=== PATIENT | male | born 1960 | race Caucasian/White ===

== ENCOUNTER 2019-05-07 13:51 | Inpatient (IN) | payer MEDICARE, MEDICAID ==
[~2019-05-07] VITALS: Ht 182.9 cm; Wt 152.9 kg
[2019-05-07 14:15] LABS: BASOPHILS % (AUTO) 0 % (0-10); EOSINOPHILS # (AUTO) 0.2 10^3/uL (0.0-0.3); EOSINOPHILS % (AUTO) 2 % (0-10); HEMATOCRIT 36 % (40-54); HEMOGLOBIN 11.7 G/DL (13.3-17.7); LYMPHOCYTES # (AUTO) 2.3 X 10^3 (1.0-4.0); LYMPHOCYTES % (AUTO) 29 % (12-44); MEAN CORPUSCULAR HEMOGLOBIN 29 PG (25-34); MEAN CORPUSCULAR HGB CONC 33 G/DL (32-36); MEAN CORPUSCULAR VOLUME 89 FL (80-99); MONOCYTES % (AUTO) 13 % (0-12); NEUTROPHILS # (AUTO) 4.5 X 10^3 (1.8-7.8); NEUTROPHILS % (AUTO) 56 % (42-75); PLATELET COUNT 273 10^3/uL (130-400); RED CELL DISTRIBUTION WIDTH 13.6 % (10.0-14.5)
[2019-05-07 14:25] LABS: INR 1.1 (0.8-1.4); PROTHROMBIN TIME PATIENT 14.3 SEC (12.2-14.7)
--- NOTE | 2019-05-07 14:28 | Diagnostic Imaging Report ---
PATIENT HISTORY: Chest pain. TECHNIQUE: Frontal view of the chest. COMPARISON: None. FINDINGS: Lung volumes are mildly low. There is mild cardiomegaly with central vascular congestion. There is airspace opacity in the left upper lung. No pneumothorax or pleural effusion is seen. IMPRESSION: 1. Airspace opacity in the left upper lung, may represent pneumonia or asymmetric edema. 2. Mild cardiomegaly with central vascular congestion. Dictated by: Dictated on workstation # [id number]
[2019-05-07 14:38] LABS: ALANINE AMINOTRANSFERASE 18 U/L (0-55); ALBUMIN 3.7 GM/DL (3.2-4.5); ALKALINE PHOSPHATASE 78 U/L (40-136); AMYLASE 20 U/L (25-125); BILIRUBIN,TOTAL 0.4 MG/DL (0.1-1.0); BUN/CREATININE RATIO 12; CALCIUM 9.1 MG/DL (8.5-10.1); CARBON DIOXIDE 22 MMOL/L (21-32); CHLORIDE 99 MMOL/L (98-107); CREATINE KINASE 53 U/L (30-200); CREATININE SERUM 0.82 MG/DL (0.60-1.30); GFR ESTIMATED > 60; GLUCOSE 96 MG/DL (70-105); LIPASE 17 U/L (8-78); MAGNESIUM 2.1 MG/DL (1.6-2.4); POTASSIUM 3.6 MMOL/L (3.6-5.0); SODIUM 134 MMOL/L (135-145); TOTAL PROTEIN 7.9 GM/DL (6.4-8.2)
[2019-05-07 14:47] LABS: CREATINE KINASE MB 0.6 NG/ML (<6.6)
[2019-05-07] MEDS ORDERED: ONDANSETRON 4 MG/2 ML (SDV) Z0FRAN ONE (15:00)
[2019-05-07] MEDS ORDERED: PANTOPRAZOLE 40 MG (PROTONIX) VIAL IV ONE (15:15)
[2019-05-07] MEDS ORDERED: ONDANSETRON 4 MG/2 ML (SDV) Z0FRAN IVP ONE (15:15)
[2019-05-07] MEDS ORDERED: NS 100 ML (IVPB) BAG IV ONE (15:30)
[2019-05-07] MEDS ORDERED: IOHEXOL 350 MG/ML 150 ML (OMNIPAQUE 350) VIAL IV ONE (15:30)
[2019-05-07] MEDS ORDERED: HOLD METFORMIN - RECEIVED CONTRAST 20 ML VIAL IV SCH (15:30)
--- NOTE | 2019-05-07 16:01 | ED Chest Pain ---
General Chief Complaint: Chest Pain Stated Complaint: CP Nursing Triage Note: PT ARRIVES VIA EMS FROM [facility] WITH C/O CHEST PAIN ONSET 0600 THIS AM. PT STATES HTN HISTORY. PT STATES HE HAD VOMITING AND DIARRHEA 1 WEEK AGO AND DIARRHEA TODAY. PT HAD AN EGD ON WEDNESDAY AND WAS STARTED ON BACTRIM ON WEDNESDAY FOR UTI. PRIOR TO ARRIVAL PT WAS GIVEN 4 ASA, 1 INCH OF NITRO PASTEA WITH NO RELIEF. EMS ADMINISTERED 100MCG OF FENTANYL. PT STATES 9/10 PAIN CURRENTLY. Nursing Sepsis Screen: No Definite Risk Source: patient (PT IS SOMEWHAT LIMITED HISTORIAN--APPEARS TO HAVE SOME MENTAL DEFICIENCY), EMS History of Present Illness Date Seen by Provider: May 07, 2019 Time Seen by Provider: 13:51 Initial Comments PT ARRIVES VIA EMS FROM [facility]---PT IS IN A HOME THROUGH [employer] AND HAS LIVE IN CAREGIVERS C/O CHEST PAIN SINCE WAKING AT 0600 THIS AM STATES PAIN IS IN CENTER OF CHEST AND OUT TO SIDES OF CHEST HAS BEEN HAVING THIS PAIN OFF AND ON FOR THE LAST FEW DAYS + SHORTNESS OF BREATH FOR THE LAST FEW DAYS NO SWEATS + NAUSEA AND VOMITING LAST WEEK. STATES HE IS A LITTLE NAUSEATED TODAY HAD DIARRHEA LAST WEEK, AND AGAIN TODAY NO KNOWN FEVER HAS HAD MILD COUGH PT HAD EGD ON WEDNESDAY, AND WAS STARTED ON BACTRIM ON WEDNESDAY FOR UTI EMS GAVE 4 BABY ASPIRIN, AND PLACED 1" OF NITROPASTE WITHOUT RELIEF. EMS THEN GAVE FENTANYL 100 MCG--PT STATES NO RELIEF. PT RATES PAIN 10/10 BP 124/71, PULSE IN 90'S, FOR EMS ACCUCHECK 87 FOR EMS PT DOES NOT HAVE A REPORTED HISTORY OF CARDIAC PROBLEMS CAREGIVER IS IN ROOM LATER, AND REPORTS THAT PT HAD ROUTINE APPOINTMENT WITH DR. LOAIZA ON 05/03/19, WAS FOUND TO HAVE A UTI AND WAS STARTED ON BACTRIM. NO OTHER TESTS WERE DONE, ACCORDING TO MORTGAGE PROTECTION SALES. PT WAS ALSO STARTED ON AMITRIPTYLINE . SHE STATES THAT HE WAS C/O CHEST PAIN AND SHORTNESS OF BREATH AT THAT TIME. HE COMPLAINED AGAIN OF CHEST PAIN TODAY, SO MORTGAGE PROTECTION SALES TOOK HIM TO WALK IN CLINIC AT [facility] TODAY, WHO SENT HIM HERE. NO FEVER, SWEATS OR CHILLS NO COUGH HAS C/O BEING TIRED PCP: DR. LOAIZA Allergies and Home Medications Allergies Coded Allergies: phenytoin (Verified Allergy, Unknown, 05/07/19) Patient Home Medication List Home Medication List Reviewed: Yes Review of Systems Review of Systems Constitutional: see HPI; No chills, No diaphoresis, No fever; malaise EENTM: Other (SORES ON LIPS FOR THE LAST 2 DAYS) Respiratory: See HPI; Denies Cough; Shortness of Air Cardiovascular: See HPI, Chest Pain Gastrointestinal: See HPI; Denies Abdominal Pain; Nausea, Other (HAS HISTORY OF BOWEL AND BLADDER INCONTINENCE) Musculoskeletal: no symptoms reported Skin: no symptoms reported Psychiatric/Neurological: No Symptoms Reported; Denies Headache Endocrine: No Symptoms Reported Past Kyzvdac-Uayehg-Jzgwuh Hx Patient Social History Alcohol Use: Denies Use Recreational Drug Use: No Smoking Status: Former Smoker (2 PPD, QUIT 2010, PER PT) Type Used: Cigarettes Recent Foreign Travel: No Contact w/Someone Who Travel: No Recent Infectious Disease Expo: No Recent Hopitalizations: No Physical Abuse: No Sexual Abuse: No Mistreated: No Fear: No Seasonal Allergies Seasonal Allergies: No Past Medical History Surgeries: Yes (RIGHT INGUINAL HERNIA REPAIR; EGD) Abdominal, Gallbladder Respiratory: No Cardiac: Yes High Cholesterol, Hypertension 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 Genitourinary: Yes (URINARY INCONTINENCE) Benign Prostatic Hyperpl, Prostate Problems Gastrointestinal: Yes (BOWEL INCONTINENCE) Gastroesophageal Reflux Musculoskeletal: Yes (JOINT PAIN ) Endocrine: Yes (OBESITY) Hypothyroidsim HEENT: No Cancer: No Psychosocial: Yes (MODERATE INTELLECTUAL DISABILITIES; IMPULSE DISORDER) Anxiety, Depression Integumentary: No Blood Disorders: No Physical Exam Vital Signs Vital Signs - First Documented 05/07/19 13:59 Temp 97.6 Pulse 90 Resp 10 B/P (MAP) 151/115 (127) Pulse Ox 95 O2 Delivery Room Air FiO2 95 Capillary Refill : Less Than 3 Seconds Height, Weight, BMI Height: 6'0" Weight: 341lbs. oz. 154.746159yn; BMI Method:Stated General Appearance: No Apparent Distress, Obese HEENT: PERRL/EOMI (GLASSES), Other (LIPS WITH MULTIPLE SCABBED SORES, CRACKED SKIN. ) Neck: Normal Inspection Respiratory: No Accessory Muscle Use, No Respiratory Distress, Decreased Breath Sounds (IN BASES), Rales (ON LEFT) Cardiovascular: Regular Rate, Rhythm, No Edema, No JVD, No Murmur, Normal Peripheral Pulses Gastrointestinal: Non Tender, Soft Extremity: Normal Capillary Refill, Normal Inspection, Normal Range of Motion, Non Tender, No Calf Tenderness, No Pedal Edema Neurologic/Psychiatric: Alert, Oriented x3, No Motor/Sensory Deficits, Normal Mood/Affect, district court bailiff II-XII Norm as Tested, Other (APPEARS TO BE MILD TO MODERATELY MENTALLY CHALLENGED) Skin: Normal Color, Warm/Dry Focused Exam Lactate Level 05/07/19 16:30: Lactic Acid Level 1.19 Lactic Acid Level Laboratory Tests Test 05/07/19 16:30 Lactic Acid Level 1.19 MMOL/L (0.50-2.00) Progress/Results/Core Measures Results/Orders Lab Results Laboratory Tests Test 05/07/19 13:58 05/07/19 16:30 Range/Units White Blood Count 8.0 4.3-11.0 10^3/uL Red Blood Count 3.97 L 4.35-5.85 10^6/uL Hemoglobin 11.7 L 13.3-17.7 G/DL Hematocrit 36 L 40-54 % Mean Corpuscular Volume 89 80-99 FL Mean Corpuscular Hemoglobin 29 25-34 PG Mean Corpuscular Hemoglobin Concent 33 32-36 G/DL Red Cell Distribution Width 13.6 10.0-14.5 % Platelet Count 273 130-400 10^3/uL Mean Platelet Volume 10.0 7.4-10.4 FL Neutrophils (%) (Auto) 56 42-75 % Lymphocytes (%) (Auto) 29 12-44 % Monocytes (%) (Auto) 13 H 0-12 % Eosinophils (%) (Auto) 2 0-10 % Basophils (%) (Auto) 0 0-10 % Neutrophils # (Auto) 4.5 1.8-7.8 X 10^3 Lymphocytes # (Auto) 2.3 1.0-4.0 X 10^3 Monocytes # (Auto) 1.0 0.0-1.0 X 10^3 Eosinophils # (Auto) 0.2 0.0-0.3 10^3/uL Basophils # (Auto) 0.0 0.0-0.1 10^3/uL Prothrombin Time 14.3 12.2-14.7 SEC INR Comment 1.1 0.8-1.4 Activated Partial Thromboplast Time 24 24-35 SEC Sodium Level 134 L 135-145 MMOL/L Potassium Level 3.6 3.6-5.0 MMOL/L Chloride Level 99 98-107 MMOL/L Carbon Dioxide Level 22 21-32 MMOL/L Anion Gap 13 5-14 MMOL/L Blood Urea Nitrogen 10 7-18 MG/DL Creatinine 0.82 0.60-1.30 MG/DL Estimat Glomerular Filtration Rate > 60 BUN/Creatinine Ratio 12 Glucose Level 96 70-105 MG/DL Calcium Level 9.1 8.5-10.1 MG/DL Corrected Calcium 9.3 8.5-10.1 MG/DL Magnesium Level 2.1 1.6-2.4 MG/DL Total Bilirubin 0.4 0.1-1.0 MG/DL Aspartate Amino Transf (AST/SGOT) 18 5-34 U/L Alanine Aminotransferase (ALT/SGPT) 18 0-55 U/L Alkaline Phosphatase 78 40-136 U/L Total Creatine Kinase 53 30-200 U/L Creatine Kinase MB 0.6 <6.6 NG/ML Myoglobin 29.7 10.0-92.0 NG/ML Troponin I < 0.028 <0.028 NG/ML B-Type Natriuretic Peptide 147.8 H <100.0 PG/ML Total Protein 7.9 6.4-8.2 GM/DL Albumin 3.7 3.2-4.5 GM/DL Amylase Level 20 L 25-125 U/L Lipase 17 8-78 U/L Procalcitonin 0.70 H <0.10 NG/ML Carbamazepine (Tegretol) Level 9.2 4.0-12.0 UG/ML Lactic Acid Level 1.19 0.50-2.00 MMOL/L Micro Results Microbiology 05/07/19 Influenza Types A,B Antigen (PATY) - Final, Complete My Orders Orders - DAVID MCINTYRE DO Cbc With Automated Diff (05/07/19 14:01) Magnesium (05/07/19 14:01) Chest 1 View, Ap/Pa Only (05/07/19 14:01) Ekg Tracing (05/07/19 14:01) Cardiac Profile 1 (05/07/19 14:01) Comprehensive Metabolic Panel (05/07/19 14:01) Myoglobin Serum (05/07/19 14:01) Protime With Inr (05/07/19 14:01) Partial Thromboplastin Time (05/07/19 14:01) O2 (05/07/19 14:01) Monitor-Rhythm Ecg Trace Only (05/07/19 14:01) Lipid Panel (05/08/19 06:00) Ed Iv/Invasive Line Start (05/07/19 14:01) Creatine Kinase (05/07/19 14:01) Creatine Kinase Mb (05/07/19 14:01) Lipase (05/07/19 14:01) Amylase (05/07/19 14:01) BNP (05/07/19 14:01) Carbamazepine (Tegretol) (05/07/19 14:01) Ct Angio Chest W (05/07/19 15:03) Ondansetron Injection (Zofran Injectio (05/07/19 15:15) Pantoprazole Injection (Protonix Injecti (05/07/19 15:15) Ondansetron Injection (Zofran Injectio (05/07/19 15:00) Iohexol Injection (Omnipaque 350 Mg/Ml 1 (05/07/19 15:30) Received Contrast (Hold Metformin- Contr (05/07/19 15:30) Ns (Ivpb) (Sodium Chloride 0.9% Ivpb Bag (05/07/19 15:30) Methylprednisolone Sod Succ (Solu-Medrol (05/07/19 16:30) Lactic Acid Analyzer (05/07/19 16:20) Blood Culture (05/07/19 16:20) Influenza A And B Antigens (05/07/19 16:20) Ceftriaxone For Iv Use (Rocephin For I (05/07/19 16:30) Azithromycin Injection (Zithromax Inject (05/07/19 16:30) Procalcitonin (Pct) (05/07/19 16:37) Ed Iv/Invasive Line Start (05/07/19 16:43) Ns Iv 1000 Ml (Sodium Chloride 0.9%) (05/07/19 16:43) Medications Given in ED Current Medications Medications Dose Ordered Sig/Ankush Route Start Time Stop Time Status Last Admin Dose Admin Azithromycin 500 mg/Sodium Chloride 250 ml @ 250 mls/hr ONCE ONCE IV 05/07/19 16:30 05/07/19 17:29 DC 05/07/19 17:00 250 MLS/HR Ceftriaxone Sodium 1000 mg/ Sterile Water 10 ml @ 200 mls/hr ONCE ONCE IV 05/07/19 16:30 05/07/19 16:32 DC 05/07/19 17:00 200 MLS/HR Methylprednisolone Sodium Succinate 125 mg ONCE ONCE IVP 05/07/19 16:30 05/07/19 16:31 DC 05/07/19 16:48 125 MG Ondansetron HCl 8 mg ONCE ONCE IVP 05/07/19 15:15 05/07/19 15:16 DC 05/07/19 15:11 8 MG Pantoprazole 40 mg ONCE ONCE IV 05/07/19 15:15 05/07/19 15:16 DC 05/07/19 15:33 40 MG Vital Signs/I&O 05/07/19 05/07/19 13:59 13:59 Temp 97.6 Pulse 90 Resp 10 B/P (MAP) 151/115 (127) Pulse Ox 95 95 O2 Delivery Room Air Room Air FiO2 95 Blood Pressure Mean: 127 Progress Progress Note : Progress Note O2 SATS 92-93% ON ROOM AIR--UP TO 98% ON 2L/NC Initial ECG Impression Date: May 07, 2019 Initial ECG Impression Time: 13:59 Initial ECG Rate: 84 Initial ECG Rhythm: Normal Sinus (RBBB) Initial ECG Comparisson: No Previous ECG Available Diagnostic Imaging Comments CXR--MILD CARDIOMEGALY, GLORIA INFILTRATES-LIKELY PNEUMONIA, PER RADIOLOGIST REPORT CT CHEST ANGIOGRAM--NO P.E.; BORDERLINE CARDIOMEGALY; ALVEOLAR/INTERSTITIAL INFILTRATES INVOLVING GLORIA AND LLL LIKELY DUE TO PNEUMONIA, BILATERAL RENAL ANGIOMYOLIPOMAS--PER RADIOLOGIST REPORT AT 1619 Reviewed: Reviewed by Me Departure Communication (Admissions) 1635--SPOKE WITH DR. MOLINA, HOSPITALIST, ACCEPTS PT FOR ADMIT Impression Primary Impression: LEFT SIDED PNEUMONIA Disposition: ADMITTED INPATIENT Condition: Stable Departure-Patient Inst. Referrals: SHYAM LOAIZA MD (PCP/Family) Primary Care Physician DAVID MCINTYRE DO May 07, 2019 16:01
--- NOTE | 2019-05-07 16:14 | Diagnostic Imaging Report ---
PROCEDURE: CT angiography of the chest with contrast. TECHNIQUE: Multiple contiguous axial images were obtained through the chest after uneventful bolus administration of intravenous contrast. 3D reconstructed CTA MIP acquisitions were also performed. Auto Exposure Controls were utilized during the CT exam to meet ALARA standards for radiation dose reduction. INDICATION: Shortness of breath, chest pain. FINDINGS: There are no prior CTA chest examinations available for comparison. The plain film examination of the chest performed earlier today at 12:55 PM noted mild cardiomegaly, pulmonary congestion and raised the question of pneumonia in the left upper lung. On this exam, the heart is borderline enlarged. There are no coronary artery calcifications noted. There is no defect within the pulmonary arteries to indication pulmonary embolus. The aorta is not abnormally dilated and there is no sign of dissection. There are patchy alveolar/interstitial infiltrates involving the left upper lobe and to a somewhat greater extent the left lower lobe. This does suggest pneumonia/atelectasis. The right lung is relatively clear. There is no sign of a pleural effusion. There is no mediastinal or hilar adenopathy. The thyroid gland is generally unremarkable. The sections through the upper abdomen failed to show any sign of an acute abnormality. The liver is of lower density than usually seen and this does suggest fatty metamorphosis. Also, there is a 2.6 cm fairly well-circumscribed area of low density within the right kidney and a similar-appearing 1.9 cm area of low-density in the left kidney. These findings have fat density Hounsfield units and may represent angiomyolipomas. If further study is desired, then CT of the abdomen and pelvis would be recommend. The bone windows show no sign of a fracture or of a destructive lesion. There are mild compression deformities of several of the mid and lower thoracic ribs. I suspect these are long-standing in nature. IMPRESSION: 1. There is borderline cardiomegaly and the alveolar/interstitial infiltrates involving the left upper lobe and left lower lobe are most likely due to pneumonia/atelectasis. A followup exam would be recommended for further study. 2. There is no acute cardiopulmonary abnormality noted otherwise. 3. 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 Recommendations as above. Dictated by: Dictated on workstation # [id number]
[2019-05-07] MEDS ORDERED: methylPREDNISolone 125 MG (Solu-MEDROL) VIAL IVP ONE (16:30)
[2019-05-07] MEDS ORDERED: cefTRIAXone FOR IV USE 1,000 MG in WATER (STERILE) FOR INJECTION 10 ML IV ONE (16:30)
[2019-05-07] MEDS ORDERED: AZITHROMYCIN INJECTION 500 MG in NS (IVPB) 250 ML IV ONE ×2 (16:30→20:00)
[2019-05-07] MEDS ORDERED: NS IV 1000 ML 1,000 ML IV ONE (16:43)
--- NOTE | 2019-05-07 17:09 | NUR ---
report to tatiana shell for continued care
--- NOTE | 2019-05-07 18:00 | NUR ---
BERTIN PORRAS admitted to room 432-1, with an admitting diagnosis of PNEUMONIA , on 05/07/19 from EMERGENCY DEPARTMENT via W/C, accompanied by ED STAFF. BERTIN PORRAS introduced to surroundings, call light, bed controls, phone, TV, temperature control, lights, meal times, smoking policy, visitor policy, side rail policy, bathrooms and showers. Patient Rights given to patient in the handbook. BERTIN PORRAS verbalizes understanding that [facility] is not responsible for the loss or damage to any personal effects or valuables that are kept in the patients posession during their hospitalization. BERTIN PORRAS verbalizes understanding of Interdisciplinary Patient Education. Patient and/or family were informed about the Rapid Response Team and its purpose.
[2019-05-07] MEDS ORDERED: ACETAMINOPHEN 500 MG TAB (TYLENOL) PO PRN (18:15)
[2019-05-07 18:19] VITALS: BP 124/77
--- NOTE | 2019-05-07 18:23 | NUR ---
PATIENT ZITHROMAX AND ROCEPHIN NON-ADMINISTERED THESE MEDICATIONS WERE GIVEN IN THE EMERGENCY ROOM PRIOR TO 4TH FLOOR ADMISSION. THIS RN WILL CONT TO MONITOR THIS PATIENT THROUGHOUT THE REMAINDER OF THIS SHIFT.
--- NOTE | 2019-05-07 18:26 | NUR ---
PATIENT SHOP AND ALTERATION TAILOR BROUGHT ACCURATE MEDICATION LIST AND NEW MEDICATION ( AMITRIPTYLIN) THAT WAS RETURNED AFTER REVIEWING THE PATIENT'S MEDICATION LIST. MEDICATION RECONCILIATION TECH WILL REVIEW THE REMAINDER OF THIS LIST IN THE A.M.
[2019-05-07] MEDS ORDERED: AMIT25TA9 PO (18:29)
[2019-05-07] MEDS: NS IV 1000 ML 1,000 ML IV SCH (18:45)
[2019-05-07 19:55] VITALS: BP 124/77
[2019-05-07] MEDS ORDERED: RT-ALBUTEROL SULF 2.5 MG/3 ML PRE-MIX VIAL INH PRN (20:15)
[2019-05-07 20:19] VITALS: BP 101/56
[2019-05-07] MEDS ORDERED: cefTRIAXone FOR IV USE 1,000 MG in WATER (STERILE) FOR INJECTION 10 ML IV SCH (21:00)
[2019-05-08 00:55] VITALS: BP 130/67
[2019-05-08] MEDS: methylPREDNISolone 125 MG (Solu-MEDROL) VIAL IVP SCH ×3 (01:07→12:01)
[2019-05-08 04:00] VITALS: BP 124/68
[2019-05-08] MEDS: NS IV 1000 ML 1,000 ML IV SCH ×2 (05:27→14:16)
[2019-05-08 05:52] LABS: BASOPHILS % (AUTO) 0 % (0-10); EOSINOPHILS % (AUTO) 0 % (0-10); HEMATOCRIT 38 % (40-54); HEMOGLOBIN 12.3 G/DL (13.3-17.7); LYMPHOCYTES # (AUTO) 1.2 X 10^3 (1.0-4.0); LYMPHOCYTES % (AUTO) 20 % (12-44); MEAN CORPUSCULAR HEMOGLOBIN 29 PG (25-34); MEAN CORPUSCULAR HGB CONC 33 G/DL (32-36); MEAN CORPUSCULAR VOLUME 90 FL (80-99); MEAN PLATELET VOLUME 10.1 FL (7.4-10.4); MONOCYTES # (AUTO) 0.2 X 10^3 (0.0-1.0); MONOCYTES % (AUTO) 3 % (0-12); NEUTROPHILS # (AUTO) 4.9 X 10^3 (1.8-7.8); NEUTROPHILS % (AUTO) 77 % (42-75); PLATELET COUNT 266 10^3/uL (130-400); RED CELL DISTRIBUTION WIDTH 13.4 % (10.0-14.5); WHITE BLOOD COUNT 6.3 10^3/uL (4.3-11.0)
[2019-05-08 06:09] LABS: BUN/CREATININE RATIO 13; CARBON DIOXIDE 25 MMOL/L (21-32); CHLORIDE 101 MMOL/L (98-107); CREATININE SERUM 0.83 MG/DL (0.60-1.30); POTASSIUM 4.1 MMOL/L (3.6-5.0); SODIUM 137 MMOL/L (135-145)
[2019-05-08 06:10] LABS: ALANINE AMINOTRANSFERASE 19 U/L (0-55); ALBUMIN 3.8 GM/DL (3.2-4.5); ALKALINE PHOSPHATASE 80 U/L (40-136); BILIRUBIN,TOTAL 0.2 MG/DL (0.1-1.0); CALCIUM 9.5 MG/DL (8.5-10.1); CHOLESTEROL 214 MG/DL (< 200); GFR ESTIMATED > 60; GLUCOSE 131 MG/DL (70-105); HDL CHOLESTEROL 43 MG/DL (40-60); TOTAL PROTEIN 8.3 GM/DL (6.4-8.2); TRIGLYCERIDES 111 MG/DL (<150); VLDL CHOLESTEROL 22 MG/DL (5-40)
[2019-05-08 08:00] VITALS: BP 132/68
[2019-05-08] MEDS ORDERED: AZITHROMYCIN 250 MG TAB (ZITHROMAX) PO SCH (09:00)
--- NOTE | 2019-05-08 09:22 | Diagnostic Imaging Report ---
INDICATION: Pneumonia, followup. TECHNIQUE: Two view chest 9:13 AM CORRELATION STUDY: 05/07/2019 FINDINGS: Heart size remains enlarged with borderline vasculature. More focal area of airspace disease of the left upper lobe does persist, slightly improved. No significant effusion. Mild degenerative changes of the thoracic spine with slight anterior wedging mid thoracic vertebral bodies. IMPRESSION: 1. Cardiac enlargement and borderline vasculature. 2. More superimposed airspace opacity left upper lobe persists but does appear to be slightly improved. Dictated by: Dictated on workstation # [id number]
[2019-05-08] MEDS ORDERED: CITA20TA9 PO (10:22)
[2019-05-08] MEDS ORDERED: PANT40TA3 PO (10:22)
[2019-05-08] MEDS ORDERED: ACET-2267 PO (10:22)
[2019-05-08] MEDS ORDERED: MELO15TA39 PO (10:22)
[2019-05-08] MEDS ORDERED: MULT1TAB69 PO (10:22)
[2019-05-08] MEDS ORDERED: BUSP15TA60 PO (10:22)
[2019-05-08] MEDS ORDERED: BENA20TA7 PO (10:22)
[2019-05-08] MEDS ORDERED: DICY20TA10 PO (10:22)
[2019-05-08] MEDS ORDERED: TAMS0.4C98 PO (10:22)
[2019-05-08] MEDS ORDERED: HYDR25TA4 PO (10:22)
[2019-05-08] MEDS ORDERED: LORA10TA7 PO (10:22)
[2019-05-08] MEDS ORDERED: AMIT25TA9 PO (10:22)
[2019-05-08] MEDS ORDERED: RT-ALBUINH IH (10:22)
[2019-05-08] MEDS ORDERED: IBUP-30 PO (10:22)
[2019-05-08] MEDS ORDERED: LEVO175T5 PO (10:22)
[2019-05-08] MEDS ORDERED: OMG1KC PO (10:22)
[2019-05-08] MEDS ORDERED: CHOL378P PO (10:22)
[2019-05-08] MEDS ORDERED: SIMV20TA3 PO (10:22)
[2019-05-08] MEDS ORDERED: AMLO5TAB9 PO (10:22)
[2019-05-08] MEDS ORDERED: BUPR150T7 PO (10:22)
[2019-05-08] MEDS ORDERED: CARB300C9 PO ×2 (10:22)
[2019-05-08] MEDS ORDERED: SULF-222 PO (10:22)
--- NOTE | 2019-05-08 10:29 | NUR ---
SPOKE WITH THE PATIENT ABOUT HIS MEDICATIONS. WE WENT OVER THE EXT MED HX AND HE VERIFIED HOW HE TAKES THEM. AFTER TALKING WITH HIM I FOUND A LIST FROM [facility] ON THE CHART AND COMPARED IT WITH WHAT WE DISCUSSED. IN ADDITION TO THE LIST FROM [facility] HE STATES HE TAKES TYLENOL AND IBU NEEDED WELL A MTV AND FISH OIL OTC. HE ALSO STATES HE HAS AN INHALER HE USES ONLY NEEDED. I ADDED THESE TO THE MED REC.
[2019-05-08] MEDS ORDERED: AZIT250T12 PO (10:33)
[2019-05-08] MEDS ORDERED: CEPH-507 PO (10:33)
--- NOTE | 2019-05-08 10:34 | NUR ---
CM/SS spoke with the patient's worker at [facility] in [place] to let them know of the discharge for this day. They will provide transportation this day.
--- NOTE | 2019-05-08 10:37 | Discharge Inst-Simple/Standard ---
Discharge Inst-Standard Patient Instructions/Follow Up Plan of Care/Instructions/FU: Please continue to take your medications as written. Please follow up with your primary care doctor in the next week. Activity as Tolerated: Yes Discharge Diet: No Restrictions Return to The Hospital For: Chest pain, shortness of breath, fever, worsening cough, if you feel you are getting worse. JENNIFER GROVE MD May 08, 2019 10:36 am
--- NOTE | 2019-05-08 10:38 | Short Stay Summary-Hospitalist ---
History of Present Illness HPI/Chief Complaint Pt is a 58yoCM admitted for CAP. He is a somewhat poor historian but states that he's here due to the fact that's he's had a "hard time breathing." He denies any history of this previously or any sick contacts. He denies any fever or chills. He states this has been going on for 2 days. He denies any sputum. He was found to have a pneumonia on CXR and admitted for CAP. Source: patient Exam Limitations: no limitations Date Seen 05/08/19 Time Seen by a Provider: 10:30 Attending Physician Annabel Zepeda MD PCP Lidia Beckman MD Referring Physician Date of Admission May 07, 2019 at 5:02 pm Home Medications & Allergies Home Medications Reviewed patient Home Medication Reconciliation performed by pharmacy medication reconciliations biometrics technician and/or nursing. Patients Allergies have been reviewed. Allergies Allergies Coded Allergies phenytoin (Verified Allergy, Unknown, 05/07/19) Past Yttnleb-Yakhdn-Gdturj Hx Past Med/Social Hx: Reviewed Nursing Past Med/Soc Hx Patient Social History Alcohol Use: Denies Use Recreational Drug Use: No Smoking Status: Former Smoker (2 PPD, QUIT 2010, PER PT) Type Used: Cigarettes Recent Foreign Travel: No Contact w/other who traveled: No Recent Hopitalizations: No Recent Infectious Disease Expo: No Seasonal Allergies Seasonal Allergies: No Past Medical History Surgeries: Abdominal, Gallbladder Cardiac: High Cholesterol, Hypertension Neurological: Developmental Disorder Genitourinary: Benign Prostatic Hyperpl, Prostate Problems Gastrointestinal: Gastroesophageal Reflux Endocrine: Hypothyroidsim Psychosocial: Anxiety, Depression History of Blood Disorders: No Family History Reviewed Nursing Family Hx Cardiovascular disease G8 SISTER Coronary thrombosis G8 SISTER Review of Systems Constitutional: No chills, No fever EENTM: no symptoms reported Respiratory: cough, short of breath Cardiovascular: No chest pain, No edema Gastrointestinal: no symptoms reported Genitourinary: no symptoms reported Musculoskeletal: no symptoms reported Skin: no symptoms reported Psychiatric/Neurological: No Symptoms Reported Physical Exam Physical Exam Vital Signs Vital Signs - First Documented 05/07/19 13:59 Temp 97.6 Pulse 90 Resp 10 B/P (MAP) 151/115 (127) Pulse Ox 95 O2 Delivery Room Air FiO2 95 Capillary Refill : Less Than 3 Seconds Height, Weight, BMI Height: 6'0.00" Weight: 337lbs. 0.7oz. 152.807827em; 46.0 BMI Method:Stated General Appearance: No Apparent Distress, Obese HEENT: PERRL/EOMI (GLASSES), Other (LIPS WITH MULTIPLE SCABBED SORES, CRACKED SKIN. ) Neck: Normal Inspection Respiratory: Lungs Clear, No Accessory Muscle Use, No Respiratory Distress Cardiovascular: Regular Rate, Rhythm, No JVD, No Murmur, Normal Peripheral Pulses Gastrointestinal: Normal Bowel Sounds, Non Tender, Soft Extremity: Normal Capillary Refill, Normal Inspection, Non Tender, No Calf Tenderness, No Pedal Edema Neurologic/Psychiatric: Alert, Oriented x3, Normal Mood/Affect, Other (mild intellectual delay) Skin: Normal Color, Warm/Dry Results Results/Procedures Labs Laboratory Tests 05/07/19 13:58 05/08/19 05:30 Patient resulted labs reviewed. Imaging: Reviewed Imaging Report Short Stay Diagnosis Discharge Diagnosis-Short Stay Admission Diagnosis CAP Final Discharge Diagnosis CAP Conclusion Plan CAP Much improved, requesting discharge home Continue antibiotic course at home On room air Discuss with social work who will arrange transport back to facility Clinical Quality Measures AMI/AHF: ASA po Prior to arrival: Yes DVT/VTE Risk/Contraindication: Risk Factor Score Per Nursin RFS Level Per Nursing on Admit: 4+=Very High JENNIFER GROVE MD May 08, 2019 10:38 am
[2019-05-08] MEDS ORDERED: cefTRIAXone 1,000 MG IV (ROCEPHIN) VIAL ONE (11:52)
--- NOTE | 2019-05-08 12:02 | NUR ---
SCHEDULED DOSE OF ROCEPHIN FOR 1600 GIV[address] AT [address] GROVE VERBAL ORDER.
[2019-05-08] MEDS ORDERED: cefTRIAXone FOR IV USE 1,000 MG in WATER (STERILE) FOR INJECTION 10 ML IV SCH (16:00)
== END 2019-05-08 15:00 | disposition home or self-care (01) | DRG 194 ==
LOC: ER 13:55 → 4TH 17:02
PROVIDERS: ADMIT Internal Medicine; ATTEND Internal Medicine
DX: J18.1 Lobar pneumonia, unspecified organism (principal); I10 Essential (primary) hypertension; N39.0 Urinary tract infection, site not specified; R15.9 Full incontinence of feces; F71 Moderate intellectual disabilities; N40.1 Benign prostatic hyperplasia with lower urinary tract symptoms; R32 Unspecified urinary incontinence; E66.9 Obesity, unspecified; Z68.42 Body mass index [BMI] 45.0-49.9, adult; K21.9 Gastro-esophageal reflux disease without esophagitis; E03.9 Hypothyroidism, unspecified; F63.9 Impulse disorder, unspecified; F41.9 Anxiety disorder, unspecified; F32.9 Major depressive disorder, single episode, unspecified; Z87.891 Personal history of nicotine dependence
CPT/HCPCS: 36415; 71045; 71046; 71275; 80053; 80061; 80156; 82150; 82550; 82553; 83605; 83690; 83735; 83874; 83880; 84145; 84484; 85025; 85610; 85730; 87040; 87804; 93005; 93041

== ENCOUNTER → 2019-05-19 | Outpatient (CLI) | payer MEDICARE, MEDICAID ==
[~2019-05-19] MED LIST: ACET-2267 PO; AMIT25TA9 PO; AMLO5TAB9 PO; AZIT250T12 PO; BENA20TA7 PO; BUPR150T7 PO; BUSP15TA60 PO; CARB300C9 PO; CEPH-507 PO; CHOL378P PO; CITA20TA9 PO; DICY20TA10 PO; HYDR25TA4 PO; IBUP-30 PO; LEVO175T5 PO; LORA10TA7 PO; MELO15TA39 PO; MULT1TAB69 PO; OMG1KC PO; PANT40TA3 PO; RT-ALBUINH IH; SIMV20TA3 PO; SULF-222 PO; TAMS0.4C98 PO
--- NOTE | 2019-05-19 16:47 | Diagnostic Imaging Report ---
INDICATION: Pulmonary edema. EXAMINATION: Bilateral renal sonography was performed in the routine fashion, including renal artery Doppler. FINDINGS: The right kidney measures 11.0 x 4.5 x 5.6 cm. The left kidney measures 11.6 x 6.0 x 5.2 cm. On the right side, there is a hyperechoic lesion in the superior pole, measuring 3.1 x 2.3 x 2.2 cm. This may represent angiomyolipoma. On the left side, there is a hyperechoic lesion in the superior pole that measures 2.9 x 2.5 x 2.2 cm, also suspicious for an angiomyolipoma. In correlation with the recent CT study of 05/07/2019, these lesions both show fatty density and therefore would be compatible with angiomyolipomas. There is no hydronephrosis. Urinary bladder appears unremarkable with bilateral ureteral jets. On the left side, renal artery waveforms are normal throughout with normal low resistance pattern and no significant velocity elevation. On the right side, the mid and distal renal artery shows normal waveforms of the proximal portion but the renal artery could not be visualized. IMPRESSION: Normal size kidneys, bilaterally, with no hydronephrosis. There are hyperechoic lesions on both sides which in correlation with recent CT study are compatible with angiomyolipomas. Renal artery Doppler does not suggest renal artery stenosis, although the proximal portion of the right renal artery is not well-seen. Dictated by: Dictated on workstation # [id number]
== END ==
LOC: RAD 07:14
PROVIDERS: ATTEND Family Medicine
DX: N28.9 Disorder of kidney and ureter, unspecified (principal)
CPT/HCPCS: 76770; 93975

== ENCOUNTER → 2019-06-08 | Outpatient (CLI) | payer MEDICARE, MEDICAID ==
[~2019-06-08] VITALS: Ht 183 cm; Wt 157.0 kg
[~2019-06-08] MED LIST changes: +CATHETER FLUSH 10 ML SYR IV PRN; +REGADENOSON 0.4 MG/5 ML SYR (LEXISCAN) IV ONE
[2019-06-08 09:14] VITALS: BP 147/108
[2019-06-08 09:15] VITALS: BP 128/90
--- NOTE | 2019-06-12 15:16 | Cardiology Stress Test Report ---
Stress Test Report Type of NM Stress Test: Test Type: LEXISCAN 0.4MG/5ML Date of Procedure/Referring: Date of Procedure: Jun 08, 2019 PCP Yanique Giron MD Admitting Physician Lidia Beckman MD Indications: Chest pain Baseline Heart Rate: 76 Baseline Blood Pressure: Blood Pressure Systolic: 128 Blood Pressure Diastolic: 90 Baseline EKG: Baseline EKG: sinus rhythm Summary & Conclusion: Summary: The patient was brought to the stress lab after informed consent was taken. S tress test was performed according to the Lexiscan protocol. 0.4 mg of IV Lexiscan was given. Low-grade exercise was performed. Baseline EKG showed sinus rhythm at 76 BPM. Initial blood pressure was 136/87 mmHg. Maximum heart rate was 90 bpm and blood pressure 145/87 mmHg. Patient did not have any chest pain, arrhythmias or ST segment changes during the stress test. 10.5 mCi of Myoview were given for rest imaging and 33 mCi of Myoview given for stress imaging. Transient ischemic dilatation score 1.07, EF 34 percent. Global hypokinesis. Large fixed anterior septal, apical defect with no reversibility. Conclusion: Pharmacological stress test was negative for ischemia. Moderate to severe LV systolic dysfunction with global hypokinesis. Possible large anterior infarct. Viability study is recommended. Yanique GIRON MD Jun 12, 2019 15:16
== END ==
LOC: CARD 07:40
PROVIDERS: ATTEND Internal Medicine Interventional Cardiology
DX: I11.9 Hypertensive heart disease without heart failure (principal); E66.01 Morbid (severe) obesity due to excess calories; E78.01 Familial hypercholesterolemia; Z87.891 Personal history of nicotine dependence
CPT/HCPCS: 78452; 93017; 93306

== ENCOUNTER → 2019-06-19 | Outpatient (CLI) | payer MEDICARE, MEDICAID ==
[~2019-06-19] MED LIST changes: -CATHETER FLUSH 10 ML SYR IV PRN; -REGADENOSON 0.4 MG/5 ML SYR (LEXISCAN) IV ONE
== END ==
LOC: CARD 10:16
PROVIDERS: ATTEND Internal Medicine Interventional Cardiology
DX: I51.7 Cardiomegaly (principal); I51.3 Intracardiac thrombosis, not elsewhere classified

== ENCOUNTER 2019-07-06 10:58 | Day surgery (SDC) | payer MEDICARE, MEDICAID ==
[2019-07-06] VITALS (10 sets, daily range): BP systolic 114–136; BP diastolic 60–80
[~2019-07-06] VITALS: Ht 182.9 cm; Wt 158.0 kg
[2019-07-06] MEDS ORDERED: NS IV 1000 ML 1,000 ML IV SCH (11:11)
[2019-07-06] MEDS ORDERED: HEParin (CATH LAB) 2,000 ML IV ONE (11:16)
[2019-07-06] MEDS ORDERED: LIDOCAINE 1% INJ 20 ML 20 ML VIAL ONE (11:16)
[2019-07-06] MEDS ORDERED: NS IV 1000 ML 1,000 ML ONE (11:16)
[2019-07-06 11:42] LABS: HEMOGLOBIN 12.7 G/DL (13.3-17.7); RED CELL DISTRIBUTION WIDTH 13.9 % (10.0-14.5); WHITE BLOOD COUNT 8.8 10^3/uL (4.3-11.0)
[2019-07-06 11:53] LABS: PROTHROMBIN TIME PATIENT 13.3 SEC (12.2-14.7)
[2019-07-06 11:54] LABS: ALANINE AMINOTRANSFERASE 12 U/L (0-55); ALBUMIN 4.1 GM/DL (3.2-4.5); ALKALINE PHOSPHATASE 113 U/L (40-136); BILIRUBIN,TOTAL 0.3 MG/DL (0.1-1.0); BUN/CREATININE RATIO 17; CALCIUM 9.1 MG/DL (8.5-10.1); CARBON DIOXIDE 25 MMOL/L (21-32); CHLORIDE 102 MMOL/L (98-107); CHOLESTEROL 205 MG/DL (< 200); CREATININE SERUM 0.81 MG/DL (0.60-1.30); GFR ESTIMATED > 60; GLUCOSE 96 MG/DL (70-105); HDL CHOLESTEROL 49 MG/DL (40-60); POTASSIUM 3.7 MMOL/L (3.6-5.0); SODIUM 140 MMOL/L (135-145); TOTAL PROTEIN 7.9 GM/DL (6.4-8.2); TRIGLYCERIDES 110 MG/DL (<150); VLDL CHOLESTEROL 22 MG/DL (5-40)
[2019-07-06] MEDS ORDERED: BUSP7.5T5 PO (12:10)
[2019-07-06] MEDS ORDERED: FLUT9.9S NS (12:10)
[2019-07-06] MEDS ORDERED: FLU QUADRIvalent (5+ YOA) 2019-2020 (AFLURIA) 0.5 ML IM ONE (13:00)
--- NOTE | 2019-07-06 13:28 | NUR ---
SPOKE WITH PT ( WELL HIS CAREGIVER FROM [facility]) WELL CALL [facility] TO COMPLETE THE MED REC. THE CAREGIVER HAD A LIST OF ALL THE MEDS AND HOW THEY WERE SET UP FOR HIM, THE PT DOES NOT TAKE CARE OF HIS OWN MEDS. [facility] WAS ABLE TO VERIFY ALL HIS MEDICATIONS HAD BEEN FILLED AND SENT OUT FOR JUNE AND THEY WERE FOR A 31 DAY SUPPLY CARBAMAZEPINE: WHEN IT WAS LISTED ON THE [facility] MED LIST IT SAID " 1 AM AND 2 PM", WHEN I VERIFIED THIS WITH THE CAREGIVER SHE SAID THAT HE ONLY TAKES 1 TAB BID AND HAD BEEN THAT WAY SINCE HE CAN TO THAT FACILITY. [facility] HAD THE DIRECTIONS OF 1 AM AND 2PM, SO I REACHED OUT TO HIS PCP AND THE WERE ABLE TO VERIFY THAT THE DIRECTIONS HAD BEEN CHANGED TO 1 TAB BID.
[2019-07-06] MEDS ORDERED: fentaNYL INJECTION 100 MCG/2 ML AMP ONE (15:38)
[2019-07-06] MEDS ORDERED: MIDAZOLAM 5 MG/5 ML (VERSED) VIAL ONE (15:38)
[2019-07-06] MEDS ORDERED: NITRO DRIP 25000 MCG/D5W 250 ML IV ONE (15:39)
[2019-07-06] MEDS ORDERED: HEParin 1000 UNIT/ML (10ML VIAL) FOR BOLUS ONE (15:39)
[2019-07-06] MEDS ORDERED: VERAPAMIL 5 MG/2 ML (CALAN) VIAL IV ONE (15:39)
[2019-07-06] MEDS ORDERED: TICAGRELOR 90 MG TABLET (BRILINTA) PO ONE (16:14)
[2019-07-06] MEDS ORDERED: ASPIRIN 325 MG (5 GR) TABLET ONE (16:14)
--- NOTE | 2019-07-06 16:34 | Cardiac Procedure Note-CS/ASA ---
Pre-Procedure Note Pre-Op Procedure Note H&P Reviewed The H&P was reviewed, patient examined and no changes noted. Date H&P Reviewed: Jul 06, 2019 Time H&P Reviewed: 13:00 Conscious Sedation Pre-Proced Time 13:00 ASA Score 3 For ASA 3 and 4: Consider anesthesia and medical clearance. Also, for patients with a history of failed moderate sedation consider anesthesia. Airway Lungs Heart ASA score ASA 1: a normal healthy patient ASA 2: a patient with a mild systemic disease (mid diabetes, controlled hypertension, obesity ASA 3: a patient with a severe systemic disease that limits activity (angina, COPD, prior Myocardial infarction) ASA 4: a patient with an incapacitating disease that is a constant threat to life (CHF, renal failure) ASA 5: a moribund patient not expected to survive 24 hrs. (ruptured aneurysm) ASA 6: a declared brain- patient whose organs are being harvested. For emergent operations, add the letter E after the classification Mallampati Classification Grade 1 Sedation Plan Analgesia, Amnesia, Plan communicated to team members, Discussed options with patient/fam, Discussed risks with patient/fam The patient is an appropriate candidate to undergo the planned procedure, sedation, and anesthesia. The patient immediately re-assessed prior to indication. Yanique LYMAN MD Jul 06, 2019 4:34 pm
--- NOTE | 2019-07-06 16:41 | Coronary Angiography & PCI ---
Coronary Angiography & PCI DATE OF PROCEDURE: 07/06/19 INDICATION: New onset cardiomyopathy with anterior hypokinesis. PREOPERATIVE DIAGNOSIS: New onset cardiomyopathy with anterior hypokinesis. POSTOPERATIVE DIAGNOSIS: Severe mid LAD stenosis treated with a drug-eluting stent. HISTORY: This is a 58-year-old gentleman with history of active smoking. He had a prolonged episode of chest pain in April 2019. Echocardiogram shows an EF of 30-35 percent with anterior, anterior apical hypokinesis. Nuclear stress test was abnormal with evidence of an infarct. Therefore, the patient was scheduled for coronary angiography. PROCEDURES PERFORMED: 1.Coronary angiography. 2.Left heart catheterization. 3.PCI to the mid LAD with a drug-eluting stent. COMPLICATIONS: None. SPECIMENS: None. ESTIMATED BLOOD LOSS: 10 mL ANESTHESIA: Conscious sedation ANTICOAGULATION: IV heparin CONTRAST: 100 mL. FLUOROSCOPY: 7.4 minutes. FLOUROSCOPY DOSE: 1189 mgy. PROCEDURE DETAILS: The patient is a 58 male and was brought to the labor specialist after informed consent was taken. All the risks and complications were explained in detail; this included the risk of bleeding, vascular damage, stroke, NV and even . The patient was draped and prepped in the usual sterile fashion. Access was gained in the right radial artery with a 6 Sami sheath. Coronary angiography and left heart catheterization was performed with the [place] catheter. FINDINGS: 1.Left main: Patent. 2.LAD: Severe mid LAD stenosis. Stenosis severity 70-80 percent. Hazy looking. 3.Left circumflex artery: Patent. Ramus intermedius branch does not have any s ignificant stenosis. 4.RCA: Mild luminal irregularities. Distal disease. Dominant vessel. 5.Left heart catheterization: LV pressure 111/7 mmHg. LVEDP 14 mmHg. Aortic pressure 108/71 mmHg. Severe LV systolic dysfunction. No gradient across the aortic valve. RECOMMENDATIONS: PCI to the mid LAD is recommended. INTERVENTION DETAILS: JR4 guide catheter, BMW guidewire, IV heparin for anti-coagulation. ACT was done twice. The first ACT was 449 seconds. The second ACT was done after the procedure was over which was 191 seconds. Patient was given aspirin 325 mg and Brilinta 180 mg bolus before the PCI. The lesion in the mid LAD was crossed with the BMW wire. The tip of the wire was placed in the distal LAD. Direct stenting was done with a science Dalia 2.75 x 15 mm stent at 16 artem for 30 seconds. Excellent results. No residual stenosis and BINA-3 flow post PCI. Patient tolerated the procedure well and did not have any complication. CONCLUSIONS: 1. Severe mid LAD stenosis treated successfully with a drug-eluting stent. 2. Ischemic cardiomyopathy with an EF of 30-35 percent. Primary prevention for sudden cardiac with lifevest is recommended. 3. Aggressive secondary prevention measures. Florecita Giron MD, FACP, FACC, [facility] Interventional Cardiology Yanique GIRON MD Jul 06, 2019 4:41 pm
[2019-07-06] MEDS ORDERED: PATIENT MAY USE OWN MEDS, ALL PO SCH (16:45)
[2019-07-06] MEDS: NS IV 1000 ML 1,000 ML IV SCH (18:09)
[2019-07-06] MEDS: TICAGRELOR 90 MG TABLET (BRILINTA) PO SCH (20:38)
[2019-07-06] MEDS: meTOprolol TARTRATE 25 MG (LOPRESSOR) TABLET PO SCH (20:39)
[2019-07-07] VITALS: BP 116/74
[2019-07-07 03:23] LABS: HEMOGLOBIN 12.2 G/DL (13.3-17.7); MEAN PLATELET VOLUME 10.3 FL (7.4-10.4); RED CELL DISTRIBUTION WIDTH 13.7 % (10.0-14.5); WHITE BLOOD COUNT 8.2 10^3/uL (4.3-11.0)
[2019-07-07] MEDS: NS IV 1000 ML 1,000 ML IV SCH ×2 (03:46→12:53)
[2019-07-07 03:48] LABS: BUN/CREATININE RATIO 15; CALCIUM 8.5 MG/DL (8.5-10.1); CARBON DIOXIDE 23 MMOL/L (21-32); CHLORIDE 103 MMOL/L (98-107); CREATININE SERUM 0.71 MG/DL (0.60-1.30); GFR ESTIMATED > 60; GLUCOSE 89 MG/DL (70-105); POTASSIUM 3.8 MMOL/L (3.6-5.0); SODIUM 135 MMOL/L (135-145)
[2019-07-07 04:00] VITALS: BP 142/77
[2019-07-07 08:00] VITALS: BP 154/82
[2019-07-07] MEDS ORDERED: ASPIRIN E.C. 81 MG (ECOTRIN) TAB PO SCH (09:00)
[2019-07-07] MEDS: TICAGRELOR 90 MG TABLET (BRILINTA) PO SCH (09:03)
[2019-07-07] MEDS: meTOprolol TARTRATE 25 MG (LOPRESSOR) TABLET PO SCH (09:04)
[2019-07-07 12:00] VITALS: BP 143/91
[2019-07-07] MEDS ORDERED: METO-333 PO (12:12)
[2019-07-07] MEDS ORDERED: ATOR80TA76 PO (12:12)
[2019-07-07] MEDS ORDERED: TICA90TA PO (12:12)
[2019-07-07] MEDS ORDERED: ASPI-983 PO (12:12)
--- NOTE | 2019-07-07 12:13 | Cardiology Discharge Summary ---
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 He had a prolonged episode of chest pain in April 2019. Echocardiogram shows an EF of 30-35 percent with anterior, anterior apical hypokinesis. Nuclear stress test was abnormal with evidence of an infarct. Therefore, the patient was scheduled for coronary angiography. Discharge Summary Procedures PCI to the mid LAD with a drug-eluting stent. Discharge Physical Examination Unremarkable Hospital Course Was the Problem List Reviewed?: Yes Unremarkable Discussion & Recommendations Discussion Discharge took over 30 minutes to complete. For new onset cardiomyopathy with very likely previous NV, EF below 35 percent, LifeVest is recommended for primary prevention. Patient will go home on aspirin, Lantus, statin, AMBER inhibitor and beta sukhdev. Follow up appt.: Dr. Giron in 4 weeks. Dicharge Diet: Cardiac Diet Activity as Tolerated: Yes Home Medications Reviewed patient Home Medication Reconciliation performed by pharmacy medication reconciliations tire service technician and/or nursing. Patients Allergies have been reviewed. Discharge Home Medications: Reviewed and agree with Discharge Medication list on patient's Discharge Ins truction sheet Condition at discharge Stable. Instructions to patient/family Discussed with patient and caregiver by the team. Clinical Quality Measures DVT/VTE Risk/Contraindication: Risk Factor Score Per Nursin RFS Level Per Nursing on Admit: 4+=Very High Yanique GIRON MD Jul 07, 2019 12:13
--- NOTE | 2019-07-07 12:13 | Discharge Inst-Post CATH ---
Discharge Inst-CATH/EP Problems Reviewed?: Yes Final Diagnosis Severe one vessel CAD, severe cardiomyopathy Post Cardiac Cath/EP D/C Inst Follow Up/Plan Dr. Giron in 4 weeks. <b>CARDIAC CATH/EP PROCEDURE DISCHARGE INSTRUCTIONS</b> ACTIVITY * Go Home directly and rest. * Limit activity of the leg (or wrist if it was used) for 7 days including aerobics, swimming, jogging, bicycling, etc. * Restrict stair-climbing for 7 days if possible, if not, climb up with your non-cath leg, then bring together on the same step. * Avoid lifting, pushing, pulling or excessive movement of the affected extremity for 7 days. * Customary sexual activity may be resumed after 2 days-use caution not to use a position that strains or causes pain to the affected extremity. * No driving for 24 hours. * NO SMOKING. * Avoid straining for bowel movements for 7 days. * Gentle walking on level ground is allowed. * Returning to work will depend on the type of procedure and the results. Your doctor will discuss this with you. CALL YOUR DOCTOR FOR ANY OF THE FOLLOWING: *If bleeding from the puncture site occurs- Apply gentle pressure to site with clean cloth and call your doctor or EMS. * If a knot or lump forms under the skin, increases in size, or causes pain. * If bruising appears to be worsening or moving further down your leg instead of disappearing. * Temperature above 101 F. CARE OF YOUR GROIN INCISION; * Bruising or purple discoloration of the skin near the puncture site is common. * You may shower only, no bathtub bathing for 5 days. Be careful to avoid slipping as your leg may feel stiff. * If a closure device was used on your femoral artery, please see the attached guide regarding care of the device and your leg. * Leave dressing on FOR 24 hours. CARE OF YOUR WRIST INCISION; * Bruising or purple discoloration of the skin near the puncture site is common. * You may shower. * DO NOT submerge wrist. * Leave dressing on FOR 24 hours. Yanique GIRON MD Jul 07, 2019 12:13
[2019-07-07 16:00] VITALS: BP 124/68
== END 2019-07-07 19:05 | disposition home or self-care (01) ==
LOC: CATH 10:58 → ICU 16:59 → CATH 07-07 19:05
PROVIDERS: ATTEND Internal Medicine Interventional Cardiology
DX: I25.10 Atherosclerotic heart disease of native coronary artery without angina pectoris (principal); I11.9 Hypertensive heart disease without heart failure; E78.5 Hyperlipidemia, unspecified; E66.01 Morbid (severe) obesity due to excess calories; Z79.899 Other long term (current) drug therapy; Z88.5 Allergy status to narcotic agent; Z87.891 Personal history of nicotine dependence; Z68.42 Body mass index [BMI] 45.0-49.9, adult; Z88.8 Allergy status to other drugs, medicaments and biological substances; Z82.3 Family history of stroke; Z82.49 Family history of ischemic heart disease and other diseases of the circulatory system; Z80.9 Family history of malignant neoplasm, unspecified
CPT/HCPCS: 36415; 80048; 80053; 80061; 85027; 85347; 85610; 85730; 87081; 93005; 93458

== ENCOUNTER → 2019-09-28 | Outpatient (CLI) | payer MEDICARE, MEDICAID ==
[~2019-09-28] MED LIST changes: +ASPI-983 PO; +ATOR80TA76 PO; +BUSP7.5T5 PO; +FLUT9.9S NS; +METO-333 PO; +SIMV20TA26 PO; -SIMV20TA3 PO; -TAMS0.4C98 PO; +TICA90TA PO; +TMSL.4C PO
== END ==
LOC: CARD 09:55
PROVIDERS: ATTEND Internal Medicine Interventional Cardiology
DX: I25.10 Atherosclerotic heart disease of native coronary artery without angina pectoris (principal); I42.9 Cardiomyopathy, unspecified; I50.42 Chronic combined systolic (congestive) and diastolic (congestive) heart failure; I51.0 Cardiac septal defect, acquired
CPT/HCPCS: 93306

== ENCOUNTER → 2019-10-19 | Outpatient (CLI) | payer MEDICARE, MEDICAID ==
[~2019-10-19] MED LIST changes: +CHOL378P3 PO; +METO50TA15 PO; +MONT10TA26 PO
== END ==
LOC: CARD 14:06
PROVIDERS: ATTEND Internal Medicine Interventional Cardiology
DX: I42.9 Cardiomyopathy, unspecified (principal); I50.42 Chronic combined systolic (congestive) and diastolic (congestive) heart failure; E78.01 Familial hypercholesterolemia; I10 Essential (primary) hypertension; I25.10 Atherosclerotic heart disease of native coronary artery without angina pectoris
CPT/HCPCS: 93306

== ENCOUNTER 2019-11-02 06:58 | Day surgery (SDC) | payer MEDICARE, MEDICAID ==
[2019-11-02] VITALS (12 sets, daily range): BP systolic 114–181; BP diastolic 68–161
[~2019-11-02] VITALS: Ht 175 cm; Wt 153.2 kg
[~2019-11-02 06:58] MED LIST changes: -CHOL378P3 PO; +HEParin (CATH LAB) 2,000 ML IV ONE; +LIDOCAINE 1% INJ 20 ML 20 ML VIAL ONE; -METO50TA15 PO; -MONT10TA26 PO; +NS IV 1000 ML 1,000 ML ONE; +ceFAZolin INJECTION 1,000 MG ONE
[2019-11-02] MEDS ORDERED: NS (IVPB) 50 ML ONE (06:59)
[2019-11-02] MEDS ORDERED: BACITRACIN INJECTION 50,000 UNIT, SODIUM CHLORIDE 0.9% IRRIGATIO 500 ML IR ONE ×2 (07:00)
[2019-11-02] MEDS ORDERED: ceFAZolin INJECTION 1,000 MG VIAL IV ONE (07:00)
[2019-11-02] MEDS ORDERED: NS IV 1000 ML 1,000 ML IV ONE (07:00)
[2019-11-02 07:31] LABS: HEMOGLOBIN 11.9 G/DL (13.3-17.7); RED CELL DISTRIBUTION WIDTH 13.6 % (10.0-14.5); WHITE BLOOD COUNT 7.5 10^3/uL (4.3-11.0)
[2019-11-02 07:41] LABS: PROTHROMBIN TIME PATIENT 13.3 SEC (12.2-14.7)
[2019-11-02] MEDS ORDERED: MONT10TA24 PO (07:44)
[2019-11-02] MEDS ORDERED: BUSP15TA60 PO (07:44)
[2019-11-02] MEDS ORDERED: CHOL378P3 PO (07:44)
[2019-11-02] MEDS ORDERED: METO50TA15 PO (07:44)
[2019-11-02 07:48] LABS: ALANINE AMINOTRANSFERASE 12 U/L (0-55); ALBUMIN 3.8 GM/DL (3.2-4.5); ALKALINE PHOSPHATASE 122 U/L (40-136); BILIRUBIN,TOTAL 0.3 MG/DL (0.1-1.0); BUN/CREATININE RATIO 16; CALCIUM 8.7 MG/DL (8.5-10.1); CARBON DIOXIDE 27 MMOL/L (21-32); CHLORIDE 104 MMOL/L (98-107); CHOLESTEROL 139 MG/DL (< 200); GFR ESTIMATED > 60; GLUCOSE 105 MG/DL (70-105); HDL CHOLESTEROL 38 MG/DL (40-60); POTASSIUM 3.8 MMOL/L (3.6-5.0); SODIUM 139 MMOL/L (135-145); TOTAL PROTEIN 7.3 GM/DL (6.4-8.2); TRIGLYCERIDES 84 MG/DL (<150); VLDL CHOLESTEROL 17 MG/DL (5-40)
[2019-11-02] MEDS ORDERED: MIDAZOLAM 5 MG/5 ML (VERSED) VIAL ONE ×2 (08:39→09:28)
[2019-11-02] MEDS ORDERED: fentaNYL INJECTION 100 MCG/2 ML AMP ONE ×2 (08:39→09:28)
[2019-11-02] MEDS ORDERED: proPOfol 200 MG/20 ML (DIPRIVAN) VIAL IV ONE (10:14)
[2019-11-02] MEDS ORDERED: NS IV 1000 ML 1,000 ML IV SCH (10:38)
--- NOTE | 2019-11-02 10:38 | ICD Implantation ---
Single Chamber ICD Implant DATE OF SERVICE: 11/02/2019 SINGLE CHAMBER ICD IMPLANTATION CARDIAC SALES VENDOR: Florecita Giron MD INDICATION: Ischemic cardiomyopathy, congestive heart failure, optimal medical therapy. PREOPERATIVE DIAGNOSES: Ischemic cardiomyopathy, congestive heart failure, optimal medical therapy. POSTOPERATIVE DIAGNOSES: Ischemic cardiopathy, successful single-chamber ICD implantation. HISTORY: This is a 58-year-old gentleman with history of ischemic cardiomyopathy. He had LAD PCI done in June 2019. He has been on optimal medical therapy for at least 3 months. Echocardiogram showed an EF below 35 percent. After optimal medical therapy for at least 3 months repeat echocardiogram showed an EF of 30- 35 percent. The patient was on a LifeVest for primary prevention for sudden cardiac . Primary prevention ICD implantation is recommended. PROCEDURE PERFORMED: 1. Single-chamber ICD implantation. 2. Venogram. 3. DFT testing. COMPLICATIONS: None. ESTIMATED BLOOD LOSS: 20 mL. SPECIMENS: None. ANESTHESIA: Conscious sedation. ORAL ANTICOAGULATION: None. FLUOROSCOPY TIME: 4 minutes 57 seconds. FLUOROSCOPY DOSE: 108 mgy. CONTRAST DOSE: 20 mL. PROCEDURE DETAILS: After all the questions were answered, an informed consent was taken. All the risks and complication were explained in detail. The patient was brought to the EP lab. The patient's right and left chest was prepped and draped in the usual sterile fashion. A 2-inch horizontal incision was made 1 cm below the clavicle and dissection carried down to the pectoralis fascia. IV antibiotics were administered prior to first incision. Left axillary venogram was done which did not show any obstruction or stenosis. Under fluoroscopic guidance, access was gained in the axillary vein and a regular J-wire was placed. We then introduced a sheath into the axillary vein. A Medtronic ICD lead was inserted. This is a single-coiled ICD lead. The RV lead was inserted across the tricuspid valve to an apical septal portion of the RV. The lead position was checked in JAP[place]ESE and [place]ON view. The screw was deployed and lead connected to the sql database programmer. Good sensing and pacing thresholds were obtained. Diaphragmatic pacing was ruled out. The lead was secured with 2-0 Vicryl nonabsorbable sutures. The lead was secured to the underlying muscle and fascia. We then took an ICD gener ator and the lead was connected to the device in a hermetic fashion. The device and it was placed in the pocket. Aggressive irrigation with normal saline solution was done. Interrogation of the device revealed good integrity of the leads and connection. The wound was closed using 2 layers. The first layer was an interrupted 2-0 Vicryl. The second layer was an uninterrupted 4-0 Vicryl suture. Half inch Steri-Strips and a small dressing was then applied to the wound. DFT testing was done with anesthesia support. The induction mechanism was a T- shock at 310 ms, 0.6 J. VF induced. A single shock of 25 J converted the patient to sinus rhythm. Patient tolerated the procedure well and did not have any complication. DEVICE INFORMATION: ICD VR Visia MRI AF S US/OUS DF4 Medtronic. Model number [id number]. Serial number [id number]. Right ventricular lead model number [id number] 62. Length 62. Serial number [id number]. INTRAOPERATIVE DEVICE TESTING: Right ventricular capture threshold 0.5 V at 0.5 ms, impedance 533 ohms. R-wave 11.1 mV. DEVICE INTERROGATION IMMEDIATELY POSTOP: Right ventricular capture threshold 0.5 V at 0.4 ms. R-wave 13.8 mV. Impedance 399. HVB 79 ohms. PLAN: The patient will be observed for 23 hours. We will continue with two more dosag es of IV antibiotics. We will check a chest x-ray and interrogate the device in the morning. An EKG will be done as well. If everything checks out, the patient will be discharged tomorrow. Florecita Giron MD, [facility] Cardiac Electrophysiology Yanique GIRON MD Nov 02, 2019 10:38
--- NOTE | 2019-11-02 10:41 | Cardiac Procedure Note-CS/ASA ---
Pre-Procedure Note Pre-Op Procedure Note H&P Reviewed The H&P was reviewed, patient examined and no changes noted. Date H&P Reviewed: Nov 02, 2019 Time H&P Reviewed: 08:30 Conscious Sedation Pre-Proced ASA Score 3 For ASA 3 and 4: Consider anesthesia and medical clearance. Also, for patients with a history of failed moderate sedation consider anesthesia. Airway Lungs Heart ASA score ASA 1: a normal healthy patient ASA 2: a patient with a mild systemic disease (mid diabetes, controlled hypertension, obesity ASA 3: a patient with a severe systemic disease that limits activity (angina, COPD, prior Myocardial infarction) ASA 4: a patient with an incapacitating disease that is a constant threat to life (CHF, renal failure) ASA 5: a moribund patient not expected to survive 24 hrs. (ruptured aneurysm) ASA 6: a declared brain- patient whose organs are being harvested. For emergent operations, add the letter E after the classification Mallampati Classification Grade 1 Sedation Plan Analgesia, Amnesia, Plan communicated to team members, Discussed options with patient/fam, Discussed risks with patient/fam The patient is an appropriate candidate to undergo the planned procedure, sedation, and anesthesia. The patient immediately re-assessed prior to indication. Yanique LYMAN MD Nov 02, 2019 10:41
[2019-11-02] MEDS ORDERED: PATIENT MAY USE OWN MEDS, ALL PO SCH (10:45)
--- NOTE | 2019-11-02 11:13 | NUR ---
BERTIN PORRAS admitted to room CU12-1, with an admitting diagnosis of S/P PACEMAKER PLACEMENT, on 11/02/19 from SERVICE ORDER EXPEDITER via BED, accompanied by STAFF.BERTIN PORRAS introduced to surroundings, call light, bed controls, phone, TV, temperature control, lights, meal times, smoking policy, visitor policy, side rail policy, bathrooms and showers. Patient Rights given to patient in the handbook. BERTIN PORRAS verbalizes understanding that [facility] is not responsible for the loss or damage to any personal effects or valuables that are kept in the patients posession during their hospitalization. The following Patient Care Plans were discussed with the PT: Discharge Planning, HIGH RISK BLEEDING,PAIN, and KNOWLEDGE DEFICIT. BERTIN PORRAS verbalizes understanding of Interdisciplinary Patient Education. Patient and family were informed about the Rapid Response Team and its purpose.
--- NOTE | 2019-11-02 11:50 | Diagnostic Imaging Report ---
INDICATION: Arrhythmia EXAM: Portable chest 11:04 AM FINDINGS: There is a unipolar pacemaker. Heart size and pulmonary vascularity are normal. Lungs are clear. There are no effusions or pneumothoraces. IMPRESSION: No acute abnormalities in the chest. Dictated by: Dictated on workstation # [id number]
[2019-11-02] MEDS: ceFAZolin INJECTION 1,000 MG in WATER (STERILE) FOR INJECTION 10 ML IV SCH ×2 (13:57→21:33)
[2019-11-03] VITALS: BP_SYST 135; BP_SYST 138; BP_DIAS 73; BP_DIAS 77
[2019-11-03 03:48] VITALS: BP 127/82
[2019-11-03 04:08] LABS: HEMOGLOBIN 11.7 G/DL (13.3-17.7); MEAN PLATELET VOLUME 10.1 FL (7.4-10.4); RED CELL DISTRIBUTION WIDTH 13.4 % (10.0-14.5); WHITE BLOOD COUNT 8.2 10^3/uL (4.3-11.0)
[2019-11-03 04:25] LABS: ALANINE AMINOTRANSFERASE 13 U/L (0-55); ALBUMIN 3.4 GM/DL (3.2-4.5); ALKALINE PHOSPHATASE 119 U/L (40-136); BILIRUBIN,TOTAL 0.4 MG/DL (0.1-1.0); BUN/CREATININE RATIO 13; CALCIUM 8.5 MG/DL (8.5-10.1); CARBON DIOXIDE 22 MMOL/L (21-32); CHLORIDE 106 MMOL/L (98-107); CREATININE SERUM 0.72 MG/DL (0.60-1.30); GFR ESTIMATED > 60; GLUCOSE 109 MG/DL (70-105); POTASSIUM 3.5 MMOL/L (3.6-5.0); SODIUM 138 MMOL/L (135-145); TOTAL PROTEIN 6.7 GM/DL (6.4-8.2)
[2019-11-03] MEDS ORDERED: ceFAZolin INJECTION 1,000 MG ONE (05:50)
[2019-11-03] MEDS ORDERED: WATER (STERILE) FOR INJECTION 10 ML ONE (05:50)
[2019-11-03] MEDS: ceFAZolin INJECTION 1,000 MG in WATER (STERILE) FOR INJECTION 10 ML IV SCH (05:56)
[2019-11-03 07:48] VITALS: BP 133/78
[2019-11-03] MEDS ORDERED: CEPH-507 PO ×2 (09:31→09:55)
--- NOTE | 2019-11-03 10:40 | NUR ---
BERTIN PORRAS demonstrates understanding of discharge instructions and accurately returns instructions upon questioning. Copy of Post-Discharge Instructions and Medication Discharge Instructions given to pt. BERTIN PORRAS is able to manage continuing needs after discharge. Patients belongings returned to pt. Skin dry and intact; no breakdown noted. Patient discharged from [facility]- on 11/03/19 at 1040. BERTIN PORRAS left floor via , accompanied by staff.
--- NOTE | 2019-11-03 11:55 | Cardiology Discharge Summary ---
Diagnosis/Chief Complaint Date of Admission 11/02/2019 Date of Discharge 11/03/2019 Admission Diagnosis Ischemic cardiomyopathy, congestive heart failure Final/Discharge Diagnosis Successful single-chamber ICD implantation. Ischemic cardiomyopathy Chief Complaint/HPI Chief Complaint/HPI This is a 58-year-old gentleman with ischemic cardiomyopathy. Drug-eluting stent placed to severe LAD stenosis over 3 months ago. Optimal guideline directed medical therapy for at least 3 months. Echocardiogram shows ejection fraction less than 35 percent. Single-chamber ICD is recommended. Discharge Summary Procedures Medtronic single-chamber ICD implanted. Successful DFT testing with 25 J. Left venogram showed no significant left axillary stenosis or obstruction.. Discharge Physical Examination Normal left upper chest examination. No hematoma or bruising. Normal cardiovascular examination. Hospital Course Was the Problem List Reviewed?: Yes Negative chest x-ray for pneumothorax. Normal remote device interrogation. Ancef IV given overnight. Radiology Reviewed Chest x-ray did not show any pneumothorax. Discussion & Recommendations Discussion Discharge instructions were discussed at length with the patient. Patient will be discharged on Keflex 500 mg 3 times a day for 5 days. Discharge took over 30 minutes to complete. Follow up appt.: Follow-up with Dr. Giron's RN in one week for wound check. Follow-up with Dr. Giron in one month for device interrogation and follow-up. Dicharge Diet: Cardiac Diet Activity as Tolerated: Yes Home Medications Reviewed patient Home Medication Reconciliation performed by pharmacy medication reconciliations behavioral technician and/or nursing. Patients Allergies have been reviewed. Discharge Home Medications: Reviewed and agree with Discharge Medication list on patient's Discharge Instruction sheet Condition at discharge Stable. Instructions to patient/family Discussed at length with the patient. Yanique GIRON MD Nov 03, 2019 11:55
== END 2019-11-03 10:40 | disposition home or self-care (01) ==
LOC: CATH 06:58 → ICU 11:23 → CSD 22:55 → CATH 11-03 10:40
PROVIDERS: ATTEND Internal Medicine Interventional Cardiology
DX: I25.5 Ischemic cardiomyopathy (principal); I11.0 Hypertensive heart disease with heart failure; I50.42 Chronic combined systolic (congestive) and diastolic (congestive) heart failure; I25.10 Atherosclerotic heart disease of native coronary artery without angina pectoris; E78.5 Hyperlipidemia, unspecified; E78.01 Familial hypercholesterolemia; E66.01 Morbid (severe) obesity due to excess calories; Z68.43 Body mass index [BMI] 50.0-59.9, adult; Z88.5 Allergy status to narcotic agent; Z88.8 Allergy status to other drugs, medicaments and biological substances; Z79.899 Other long term (current) drug therapy; Z87.891 Personal history of nicotine dependence; Z79.82 Long term (current) use of aspirin; Z82.3 Family history of stroke; Z80.9 Family history of malignant neoplasm, unspecified
CPT/HCPCS: 33249; 36415; 71045; 75820; 80053; 80061; 85027; 85610; 85730; 87081; 93005; 93641

== ENCOUNTER → 2020-11-06 | Outpatient (CLI) | payer MEDICARE, MEDICAID ==
[~2020-11-06] MED LIST changes: +AMLO-250 PO; -AMLO5TAB9 PO; +ASPI-1238 PO; -ASPI-983 PO; -BUPR150T7 PO; +BUPR150T8 PO; +CHOL378P3 PO; -HEParin (CATH LAB) 2,000 ML IV ONE; -LIDOCAINE 1% INJ 20 ML 20 ML VIAL ONE; +METO50TA15 PO; +MONT10TA32 PO; +MULT-567 PO; -MULT1TAB69 PO; -NS IV 1000 ML 1,000 ML ONE; -PANT40TA3 PO; +PANT40TA52 PO; -ceFAZolin INJECTION 1,000 MG ONE
== END ==
LOC: CARD 14:06
PROVIDERS: ATTEND Internal Medicine Cardiovascular Disease
DX: I11.9 Hypertensive heart disease without heart failure (principal)

== ENCOUNTER → 2020-11-11 | Outpatient (CLI) | payer MEDICARE, MEDICAID ==
[~2020-11-11] VITALS: Ht 185 cm; Wt 152.0 kg
[~2020-11-11] MED LIST changes: +CATHETER FLUSH 10 ML SYR IV PRN; +REGADENOSON 0.4 MG/5 ML SYR (LEXISCAN) IV ONE
[2020-11-11 09:14] VITALS: BP 146/79
--- NOTE | 2020-11-11 11:40 | Cardiology Stress Test Report ---
Stress Test Report Date of Procedure/Referring: Date of Procedure: Nov 11, 2020 PCP Roseline Jackman MD Admitting Physician Lidia Beckman MD Indications: CHF Baseline Heart Rate: 72 Baseline Blood Pressure: Blood Pressure Systolic: 146 Blood Pressure Diastolic: 79 Baseline Vitals Vital Signs Date Time Temp Pulse Resp B/P (MAP) Pulse Ox O2 Delivery O2 Flow Rate FiO2 11/11/20 09:14 72 146/79 (101) 99 Baseline EKG: Baseline EKG: sinus rhythm Summary After explaining the procedure to the patient, he signed a consent and then brought to the stress nuclear laboratory. Patient received 0.4 mg Lexiscan for stress test, ECG, heart rate and blood pressure were monitored continuously. Resting and stress dose of radio tracer w ere injected, imaging was acquired and reviewed in short axis, horizontal long axis and vertical long axis views. TID: 1.07 SSS: 40 SDS: 0 EF: 30 1. Patient tolerated Lexiscan well 2. Fixed defect involving the apex, anteroapical and inferoapical segment. 3. Dilated left ventricle, diffuse hypokinesia, akinesia to dyskinesia of the apex, anteroapical and inferoapical segment, EF 30 percent ROSELINE JACKMAN MD Nov 11, 2020 11:40
== END ==
LOC: CARD 08:15
PROVIDERS: ATTEND Internal Medicine Cardiovascular Disease
DX: I11.0 Hypertensive heart disease with heart failure (principal); I50.9 Heart failure, unspecified
CPT/HCPCS: 78452; 93017; A9502

== ENCOUNTER 2021-02-12 13:00 | Day surgery (SDC) | payer MEDICARE, MEDICAID ==
[2021-02-12] VITALS (9 sets, daily range): BP systolic 125–147; BP diastolic 61–81
[~2021-02-12] VITALS: Ht 185 cm; Wt 154.0 kg
--- NOTE | 2021-02-12 11:39 | Diagnostic Imaging Report ---
Indication: Coronary artery disease, congestive heart failure and chest pain AP view of the chest is obtained with comparison made to study of 11/02/2019 There is mild cardiomegaly and pulmonary venous congestion. No overt edema is identified. No pneumothorax or significant pleural fluid. Left anterior chest wall pacemaker device remains in place. IMPRESSION: Cardiomegaly and pulmonary venous congestion likely related to congestive heart failure. Dictated by: Dictated on workstation # [id number]
[2021-02-12 12:12] LABS: HEMATOCRIT 38 % (40-54); HEMOGLOBIN 12.5 g/dL (13.3-17.7); MEAN CORPUSCULAR HEMOGLOBIN 30 pg (25-34); MEAN CORPUSCULAR HGB CONC 33 g/dL (32-36); MEAN CORPUSCULAR VOLUME 92 fL (80-99); MEAN PLATELET VOLUME 10.2 fL (9.0-12.2); PLATELET COUNT 169 10^3/uL (130-400)
[2021-02-12 12:31] LABS: ALANINE AMINOTRANSFERASE 18 U/L (0-55); ALBUMIN 3.6 GM/DL (3.2-4.5); ALKALINE PHOSPHATASE 110 U/L (40-136); BILIRUBIN,TOTAL 0.4 MG/DL (0.1-1.0); BUN/CREATININE RATIO 19; CALCIUM 8.7 MG/DL (8.5-10.1); CARBON DIOXIDE 26 MMOL/L (21-32); CHLORIDE 107 MMOL/L (98-107); CHOLESTEROL 132 MG/DL (< 200); GFR ESTIMATED > 60; GLUCOSE 101 MG/DL (70-105); HDL CHOLESTEROL 36 MG/DL (40-60); POTASSIUM 3.8 MMOL/L (3.6-5.0); SODIUM 141 MMOL/L (135-145); TOTAL PROTEIN 6.9 GM/DL (6.4-8.2); TRIGLYCERIDES 84 MG/DL (<150); VLDL CHOLESTEROL 17 MG/DL (5-40)
[~2021-02-12 13:00] MED LIST changes: +BUPR150T24 PO; -BUPR150T8 PO; -CATHETER FLUSH 10 ML SYR IV PRN; +CHOL4PAC16 PO; +DEXL30CA2 PO; +HEParin (CATH LAB) 2,000 ML IV ONE; +LIDOCAINE 1% INJ 20 ML 20 ML VIAL ONE; +MAGN400O7 PO; +METO100T12 PO; +NS IV 1000 ML 1,000 ML IV SCH; +NS IV 1000 ML 1,000 ML ONE; -REGADENOSON 0.4 MG/5 ML SYR (LEXISCAN) IV ONE; +TERB250T16 PO
[2021-02-12] MEDS ORDERED: NITRO DRIP 25000 MCG/D5W 250 ML IV ONE (14:50)
[2021-02-12] MEDS ORDERED: VERAPAMIL 5 MG/2 ML (CALAN) VIAL IV ONE (14:50)
[2021-02-12] MEDS ORDERED: fentaNYL INJ 100 MCG/2 ML AMP ONE (14:50)
[2021-02-12] MEDS ORDERED: HEParin 1000 UNIT/ML (10ML VIAL) FOR BOLUS ONE (14:50)
[2021-02-12] MEDS ORDERED: MIDAZOLAM 5 MG/5 ML (VERSED) VIAL ONE (14:50)
[2021-02-12] MEDS ORDERED: PATIENT MAY USE OWN MEDS, ALL PO SCH (15:00)
[2021-02-12] MEDS ORDERED: NS IV 1000 ML 1,000 ML IV SCH ×2 (15:00→15:45)
[2021-02-12] MEDS ORDERED: NON-FORMULARY MEDICATION 1 EA EA (Fluticasone Propionate (Flonase Allergy Relief) 2 SPRAY) NS PRN (15:00)
--- NOTE | 2021-02-12 15:07 | Peripheral Report ---
Peripheral Report Physician (s)/Spinner Continuous (s) Physician ROSELINE FRIED MD Post-Procedure Note Procedure Start Date: Feb 12, 2021 ROSELINE FRIED MD Feb 12, 2021 15:07
--- NOTE | 2021-02-12 15:45 | Discharge Inst-Post CATH ---
Discharge Inst-CATH/EP Problems Reviewed?: Yes Post Cardiac Cath/EP D/C Inst Follow Up/Plan Appointment with Dr. Jackman's office in 4 weeks <b>CARDIAC CATH/EP PROCEDURE DISCHARGE INSTRUCTIONS</b> ACTIVITY * Go Home directly and rest. * Limit activity of the leg (or wrist if it was used) for 7 days including aerobics, swimming, jogging, bicycling, etc. * Restrict stair-climbing for 7 days if possible, if not, climb up with your non-cath leg, then bring together on the same step. * Avoid lifting, pushing, pulling or excessive movement of the affected extremity for 7 days. * Customary sexual activity may be resumed after 2 days-use caution not to use a position that strains or causes pain to the affected extremity. * No driving for 24 hours. * NO SMOKING. * Avoid straining for bowel movements for 7 days. * Gentle walking on level ground is allowed. * Returning to work will depend on the type of procedure and the results. Your doctor will discuss this with you. CALL YOUR DOCTOR FOR ANY OF THE FOLLOWING: *If bleeding from the puncture site occurs- Apply gentle pressure to site with clean cloth and call your doctor or EMS. * If a knot or lump forms under the skin, increases in size, or causes pain. * If bruising appears to be worsening or moving further down your leg instead of disappearing. * Temperature above 101 F. CARE OF YOUR GROIN INCISION; * Bruising or purple discoloration of the skin near the puncture site is common. * You may shower only, no bathtub bathing for 5 days. Be careful to avoid slipping as your leg may feel stiff. * If a closure device was used on your femoral artery, please see the attached guide regarding care of the device and your leg. * Leave dressing on FOR 24 hours. CARE OF YOUR WRIST INCISION; * Bruising or purple discoloration of the skin near the puncture site is common. * You may shower. * DO NOT submerge wrist. * Leave dressing on FOR 24 hours. ROSELINE JACKMAN MD Feb 12, 2021 3:45 pm
--- NOTE | 2021-02-12 16:00 | Cardiac Cath Report ---
Cardiac Cath Report Physician (s)/Insurance Licensing Supervisor (s) Physician ROSELINE FRIED MD Pre-Procedure Diagnosis Pre-Procedure Diagnosis: Chest pain, coronary artery disease Post-Procedure Note Procedure Start Date: Feb 12, 2021 Name of Procedure: Left heart catheterization Aortic arch angiogram Findings/Procedure Note PROCEDURE NOTE: 60 years old gentleman with multiple risk factors, had an abnormal stress test, scheduled for cardiac catheterization possible PTCA, during the procedure there was significant tortuosity in the right brachiocephalic artery I performed the aortic arch angiogram and evaluated the neck arteries. After explaining the procedure to the patient, all pros and cons were explained, all questions were answered. The patient signed the consent and then he was placed on the cardiac catheterization laboratory. Groin was prepped SL fashion local anesthesia was used. Sheath placed in the right radial artery, Frohna catheter was advanced to the left ventricular cavity, pressure was measured pullback to the right and left coronary system and angiogram was done then pulled to the aortic arch angiogram was done At the end of the procedure the sheath was removed. Vascular band deployed FINDINGS: Hemodynamics LV 89/3, end-diastolic pressure of 3 Aorta 87/53 mean of 26 ANATOMY: Left Main has mild disease at the midportion nonobstructive disease Left Anterior Descending is slightly tortuous with mild disease nonobstructive disease Left Circumflex has no obstructive disease Right Coronary Artery has mild disease at the midportion, moderate disease distally in the PDA LV Gram was not done, pressure was measured Aorta evaluation done with aortic arch angiogram showing normal aortic arch, no dissection or aneurysm, normal origin of the brachiocephalic artery which is tortuous. The left carotid artery and left subclavian arteries are normal CONCLUSION: 1. Mild to moderate coronary artery disease involving the left main, LAD, circumflex and right coronary artery, nonobstructive disease 2. Normal left ventricular end-diastolic pressure 3. Normal aortic arch and great vessels of the neck DISCUSSION AND RECOMMENDATION: Medical therapy is recommended no intervention is needed Anesthesia Type: Conscious Sedation Estimated blood loss (mL): 10 ml Contrast Amount: 45 ml Total Radiation Dose: 561 mGy Post-Procedure Diagnosis Post-operative diagnosis: Chest pain Coronary artery disease Hypertension Hyperlipidemia ROSELINE FRIED MD Feb 12, 2021 16:00
--- NOTE | 2021-02-12 16:01 | Conscious Sedation/ASA ---
Conscious Sedation Pre-Proced Time 16:01 ASA Score 3 For ASA 3 and 4: Consider anesthesia and medical clearance. Also, for patients with a history of failed moderate sedation consider anesthesia. Airway Lungs Heart ASA score ASA 1: a normal healthy patient ASA 2: a patient with a mild systemic disease (mid diabetes, controlled hypertension, obesity x ASA 3: a patient with a severe systemic disease that limits activity (angina, COPD, prior Myocardial infarction) ASA 4: a patient with an incapacitating disease that is a constant threat to life (CHF, renal failure) ASA 5: a moribund patient not expected to survive 24 hrs. (ruptured aneurysm) ASA 6: a declared brain- patient whose organs are being harvested. For emergent operations, add the letter E after the classification Mallampati Classification Grade 3 Sedation Plan Analgesia, Amnesia, Plan communicated to team members, Discussed options with patient/fam, Discussed risks with patient/fam The patient is an appropriate candidate to undergo the planned procedure, sedation, and anesthesia. The patient immediately re-assessed prior to indication. ROSELINE FRIED MD Feb 12, 2021 16:01
[2021-02-12] MEDS ORDERED: TAMSULOSIN 0.4 MG (FLOMAX) CAP PO SCH (17:00)
[2021-02-12] MEDS ORDERED: FLUTICASONE NASAL SPRAY (FLONASE) 16 GM BTL NS PRN (18:30)
[2021-02-12] MEDS ORDERED: NON-FORMULARY MEDICATION 1 EA EA (Metoprolol Tartrate 100 MG) PO SCH (21:00)
[2021-02-12] MEDS ORDERED: busPIRone 15 MG (BUSPAR) TABLET PO SCH (21:00)
[2021-02-12] MEDS ORDERED: meTOprolol TARTRATE 50 MG (LOPRESSOR) TAB PO SCH (21:00)
[2021-02-12] MEDS ORDERED: CARBAMAZEPINE 300 MG PO SCH (21:00)
[2021-02-12] MEDS ORDERED: AMITRIPTYLINE 25 MG (ELAVIL) TAB PO SCH (21:00)
[2021-02-13] MEDS ORDERED: LEVOTHYROXINE 75 MCG (LEVOTHROID) TABLET PO SCH (06:30)
[2021-02-13] MEDS ORDERED: LEVOTHYROXINE 100 MCG (LEVOTHROID) TAB PO SCH (06:30)
[2021-02-13] MEDS ORDERED: PANTOPRAZOLE 40 MG (PROTONIX) TAB PO SCH (09:00)
[2021-02-13] MEDS ORDERED: MONTELUKAST 10 MG (SINGULAIR) TAB PO SCH (09:00)
[2021-02-13] MEDS ORDERED: lisINopril 20 MG (PRINIVIL) TABLET PO SCH (09:00)
[2021-02-13] MEDS ORDERED: NON-FORMULARY MEDICATION 1 EA EA (Levothyroxine Sodium 175 MCG) PO SCH (09:00)
[2021-02-13] MEDS ORDERED: ASPIRIN E.C. 81 MG (ECOTRIN) TAB PO SCH (09:00)
[2021-02-13] MEDS ORDERED: CLOPIDOGREL 75 MG (PLAVIX) TABLET PO SCH (09:00)
[2021-02-13] MEDS ORDERED: DEXLANSOPRAZOLE 30 MG PO SCH (09:00)
[2021-02-13] MEDS ORDERED: NON-FORMULARY MEDICATION 1 EA EA (Benazepril HCl 20 MG) PO SCH (09:00)
== END 2021-02-12 20:10 | disposition home or self-care (01) ==
LOC: CATH 13:00 → CSD 15:50 → CATH 20:10
PROVIDERS: ATTEND Internal Medicine Cardiovascular Disease
DX: I25.10 Atherosclerotic heart disease of native coronary artery without angina pectoris (principal); I11.0 Hypertensive heart disease with heart failure; I50.32 Chronic diastolic (congestive) heart failure; I42.9 Cardiomyopathy, unspecified; E78.2 Mixed hyperlipidemia; Z79.899 Other long term (current) drug therapy; Z87.891 Personal history of nicotine dependence; Z79.890 Hormone replacement therapy
CPT/HCPCS: 71045; 80053; 80061; 85027; 85610; 85730; 87081; 93005; 93458; C1894; 36415

== ENCOUNTER → 2021-03-21 | Outpatient (CLI) | payer MEDICARE, MEDICAID ==
[~2021-03-21] MED LIST changes: -HEParin (CATH LAB) 2,000 ML IV ONE; -LIDOCAINE 1% INJ 20 ML 20 ML VIAL ONE; -NS IV 1000 ML 1,000 ML IV SCH; -NS IV 1000 ML 1,000 ML ONE
--- NOTE | 2021-03-21 17:09 | Diagnostic Imaging Report ---
HISTORY: Bilateral knee pain. COMPARISON: None. TECHNIQUE: Three views of the bilateral knees. FINDINGS: Right knee: No acute fracture or dislocation is seen in the right knee. There are [id number] degenerative changes in the medial and patellofemoral compartments and mild degenerative changes in the lateral compartment. There is moderate degenerative change in the patellofemoral compartment. No significant joint effusion is seen. Left knee: There are moderate degenerative changes in the medial and patellofemoral compartments and mild in the lateral compartment. No significant joint effusion is seen. No acute fracture is seen. Alignment is normal. IMPRESSION: 1. 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 Dictated by: Dictated on workstation # [id number]
== END ==
LOC: RAD 15:56
PROVIDERS: ATTEND Nurse Practitioner Family
DX: M17.0 Bilateral primary osteoarthritis of knee (principal)